=== PATIENT | female | born 1945 | race African-American/Black ===

== ENCOUNTER → 2019-12-09 18:58 | Outpatient (CLI) | payer MEDICARE, SELFPAY ==
--- NOTE | ~2019-12-09 | XR_ITS ---
EXAMINATION: XR hand RT min 3V DATE: 12/09/2019 19:23 INDICATION: Pain at the third-fifth digits post fall. TECHNIQUE: Posteroanterior, oblique and lateral views of the right hand were obtained. COMPARISON: None. FINDINGS: Chronic appearing deformity to the tuft of the right fifth digit with attenuation of the overlying so ft tissues suggesting sequela of prior trauma or surgery. Ulnar minus variance with some widening of the distal radioulnar joint. Alignment is otherwise normal. No acute fracture. Polyarticular osteoart hritis, moderate severity at the first interphalangeal joint and mild at the triscaphe, first carpome tacarpal, first-third metacarpophalangeal and multiple predominantly distal interphalangeal joints. L ucencies within sclerotic margins at the ulnar styloid process and at the head of the third metacarpa l which could represent either degenerative cystic change where chronic erosions. Prominent soft tiss ue swelling over the dorsal and ulnar side of the hand, wrist and forearm. IMPRESSION: 1. No acute osseous abnormality. Reviewed, dictated and finalized at location A.
== END ==
PROVIDERS: PCP Family Medicine; Visit Provider Family Medicine
DX: M79.641 Pain in right hand (principal)
CPT/HCPCS: 73130